=== PATIENT | female | born 1960 | race Caucasian/White ===

== ENCOUNTER 2016-11-26 20:00 | Emergency (ER) | payer OTHER ==
[2016-11-26 20:32] LABS: BASOPHIL COUNT 0.1 K/uL (0-0.1); EOSINOPHIL (%) 2.8 % (0-5); EOSINOPHIL COUNT 0.3 K/uL (0-0.3); HEMATOCRIT 40.5 % (36.0-46.0); IMMATURE GRANULOCYTE (%) 0.6 % (0.0-0.7); IMMATURE GRANULOCYTE COUNT 0.1 K/uL; INSTRUMENT ABS NEUTROPHIL CT 7.7 K/uL; LYMPHOCYTE COUNT 2.5 K/uL (1.0-2.8); MCHC 33.1 G/DL (30.0-36.0); MCV 87.7 FL (83-99); MEAN PLAT.VOLUME 9.2 uM^3 (9.5-12.4); MONOCYTE (%) 5.4 % (3-12); MONOCYTE COUNT 0.6 K/uL (0-0.8); NEUTROPHIL (%) 68.6 % (45-76); NEUTROPHIL COUNT 7.7 K/uL (1.8-6.4); PLATELET COUNT 221 K/uL (156-360); RBC DIS.WIDTH-CV 12.4 % (11.8-14.6); RBC DIS.WIDTH-SD 40.5 % (39-53); RED BLOOD COUNT 4.62 M/uL (3.80-5.20); WHITE BLOOD COUNT 11.2 K/uL (4.1-10.2)
[2016-11-26 20:44] LABS: AMYLASE 76 IU/L (1-118); CHLORIDE 103 mEq/L (99-109); POTASSIUM 3.9 mEq/L (3.7-5.4); SODIUM 139 mEq/L (136-147)
[2016-11-26 20:45] LABS: GLUCOSE 143 mg/dL (70-99)
[2016-11-26 20:47] LABS: ANION GAP 10 MEQ/L (2-14)
[2016-11-26 20:49] LABS: SERUM ETHYL ALCOHOL < 10 mg/dL
[2016-11-26 20:50] LABS: UREA NITROGEN (BUN) 29 mg/dL (9-23)
[2016-11-26 20:52] LABS: LIPASE 866 U/L (1.0-51.0)
[2016-11-26 21:04] LABS: GFR ESTIMATE (CALCULATED) 38 mL/min/
[2016-11-26 22:40] LABS: TROP-I INTERPRETATION NEGATIVE; TROPONIN-I < 0.01 ng/mL (0.0-0.30)
== END 2016-11-27 00:09 | disposition home or self-care (01) ==
LOC: TRA 20:00 → EME 20:00
PROVIDERS: Emergency Medicine
DX: S06.0X0A Concussion without loss of consciousness, initial encounter (principal); R07.9 Chest pain, unspecified; M54.9 Dorsalgia, unspecified; M54.2 Cervicalgia; V49.40XA Driver injured in collision with unspecified motor vehicles in traffic accident, initial encounter; E11.9 Type 2 diabetes mellitus without complications; Z98.84 Bariatric surgery status
CPT/HCPCS: 70450; 71010; 71260; 72125; 72129; 72132; 73560; 73630; 74177; 80048; 81003; 82150; 83690; 84484; 84702; 85025; 86850; 86900; 86901; 93005; 99281; 99284; G0480; J2270; J2405